=== PATIENT | female | born 1960 | race Caucasian/White ===

== ENCOUNTER 2016-06-24 09:55 | Emergency (ER) | payer MEDICAID ==
[2016-06-24 10:05] VITALS: RESP 18
--- NOTE | 2016-06-24 10:20 | CPEKG ---
Heart Rate: 64 RR Interval: 938 P-R Interval: 180 QRSD Interval: 92 QT Interval: 460 QTC Interval: 475 P Kingsley: 74 QRS Kingsley: 73 T Wave Kingsley: 87 EKG Severity - NORMAL ECG - EKG Impression: SINUS RHYTHM Electronically Signed By: Patt White 24-Jun-2016 14:54:58
--- NOTE | 2016-06-24 10:26 | EDPHY ---
H & P Time Seen by Provider: 06/24/16 10:23 HPI/ROS: CHIEF COMPLAINT: Congestion, cough HISTORY OF PRESENT ILLNESS: This patient is a 55 year old woman, with a history of COPD on chronic supplemental oxygen and diabetes, presenting with a 1.5 week history of sinus congestion and mild cough. It is associated with increased difficulty breathing. Breathing has improved today after increasing her oxygen to 4L. Denies fever. She is not on a steroid secondary to her diabetes. She does not use nebulizers at home. Takes a daily disc inhaler (believes it is Advair). REVIEW OF SYSTEMS: Constitutional: No fever, no chills Eyes: No visual changes ENT: Congestion. No sore throat Respiratory: cough, shortness of breath Cardiac: No chest pain Gastrointestinal: No nausea, no vomiting, no abdominal pain Genitourinary: No hematuria, no dysuria Musculoskeletal: No leg pain or swelling Skin: No rash Neurological: No headache, no numbness, no weakness Psychiatric: No depression Past Medical/Surgical History: COPD, diabetes Social History: Smokes cigarettes Smoking Status: Current every day smoker Physical Exam: General Appearance: Alert, pleasant Eyes: Pupils equal and round, no conjunctival pallor or injection ENT, Mouth: Mucous membranes moist Neck: Normal inspection Respiratory: Few expiratory wheezes Cardiovascular: Regular rate and rhythm Gastrointestinal: Abdomen is soft and non- tender Neurological: A&O, nonfocal, normal gait Skin: Warm and dry, no rash Extremities: Nontender, no pedal edema Psychiatric: Mood and affect normal Constitutional: Initial Vital Signs Temperature (C) 37 C 06/24/16 10:03 Heart Rate 70 06/24/16 10:03 Respiratory Rate 18 06/24/16 10:03 Blood Pressure 132/73 H 06/24/16 10:03 O2 Sat (%) 84 L 06/24/16 10:03 O2 Delivery Mode Nasal Cannula O2 (L/minute) 4 Allergies/Adverse Reactions: bupropion HCl [From Wellbutrin] Allergy (Severe, Verified 06/24/16 10:00) PANIC ATTACKS Home Medications: Medication Instructions Recorded Atenolol [Tenormin 25 mg (*)] 25 mg PO DAILY 05/02/09 Escitalopram Oxalate [Lexapro] 20 mg PO DAILY 05/02/09 Hydrochlorothiazide [HCTZ (*)] 12.5 mg PO DAILY 05/02/09 Levothyroxine [Synthroid 100 mcg 100 mcg PO DAILY06 05/02/09 (*)] Simvastatin [Zocor] 20 mg PO DAILY@19 05/02/09 clonazePAM [klonoPIN (*)] 1.5 mg PO DAILY 05/02/09 metFORMIN HCL [Glucophage 500 mg 1,000 mg PO BIDMEAL 05/02/09 (*)] Cyanocobalamin [Vitamin B12 (*)] 100 mcg PO DAILY 05/02/15 ESOMEPRAZOLE MAG TRIHYDRATE 40 mg PO DAILY PRN 05/02/15 [NEXIUM] Insulin Detemir [Levemir Flextouch] 10 unit SQ HS 05/02/15 Fluticasone/Salmeter 250/50Mcg 1 puffs IH BID #1 disk 05/04/15 [Advair 250/50 (*)] Ipratropium/Albuterol [Combivent 1 inh IH QID #1 mdi 05/04/15 Respimat Inhal Streator] Combivent Respimat Inhal Streator(*) 06/24/16 Labetalol HCl 06/24/16 levOFLOXACIN [levAQUIN (*)] 750 mg PO DAILY #10 tab 06/24/16 Medical Decision Making - Diagnostics EKG Interpretation: EKG interpreted by me reveals normal sinus rhythm, rate 64, no ST or T segment changes. Imaging: Study: PA and Lateral Chest X-ray Indication: Cough, dyspnea Results: I viewed the images myself on the PACS system. The radiologist interpretation is: Possible left lower lobe infiltrate. ED Course/Re-evaluation: Duo nebulizer administered. CXR ordered. Patient feels better after the DuoNeb and 3 L oxygen by nasal cannula. Declined steroids. Chest x-ray results discussed with the patient. She declines admission. She feels that her breathing is much better and that she will be fine at home. CXR shows possible left lower lobe infiltrate. Prescribed Levaquin for treatment. Differential Diagnosis: Differential diagnosis includes though it is not limited to pneumonia, pneumothorax, pulmonary embolism, aortic dissection, pericarditis, acute coronary syndrome. - Data Points Laboratory Results: Laboratory Results 06/24/16 10:25 06/24/16 10:25 Medications Given: Discontinued Medications Albuterol/Ipratropium (Duoneb) 3 ml IH EDNOW ONE Stop: 06/24/16 10:46 Last Admin: 06/24/16 10:55 Dose: 3 ml Departure - Departure Disposition: Home, Routine, Self-Care Clinical Impression: Chronic obstructive pulmonary disease with acute exacerbation, Pneumonia Condition: Good Instructions: COPD (Chronic Obstructive Pulmonary Disease) (ED), Pneumonia (ED) Additional Instructions: Take the Levaquin as prescribed. Follow up with Dr. Hollis this week. Referrals: Vanessa Hollis MD [Primary Care Provider] - As per Instructions Prescriptions: levOFLOXACIN [levAQUIN (*)] 750 mg PO DAILY #10 tab Report Scribed for: Patt White Report Scribed by: Marcia Crowe Date of Report: 06/24/16 Time of Report: 10:25 Physician Review and Approval Statement: 06/24/16 10:43 Portions of this note were transcribed by a medical supervisor. I personally performed a history, physical exam, medical decision making, and confirmed accuracy of information the transcribed note.
[2016-06-24 10:36] LABS: % IMMATURE GRANULYOCYTES 1.2 % (0.0-1.1); ABSOLUTE IMMATURE GRANULOCYTES 0.08 10^3/uL (0.00-0.10); ADD DIFF? NO; ADD MORPH? NO; ADD SCAN? NO; ATYPICAL LYMPHOCYTE FLAG 20 (0-99); FRAGMENT RBC FLAG 0 (0-99); HEMATOCRIT 35.8 % (38.0-47.0); HEMOGLOBIN 12.9 g/dL (12.6-16.3); LEFT SHIFT FLG 0 (0-99); LIPEMIA HEMOLYSIS FLAG 90 (0-99); MEAN CELL HEMOGLOBIN 34.9 pg (27.9-34.1); MEAN CELL VOLUME 96.8 fL (81.5-99.8); MEAN PLATELET VOLUME 9.4 fL (8.7-11.7); PLATELET CLUMPS FLAG 0 (0-99); PLATELET COUNT 192 10^3/uL (150-400); RED CELL DISTRIBUTION WIDTH 12.6 % (11.5-15.2)
[2016-06-24] MEDS ORDERED: IPRATROPIUM/ALBUTEROL 3 ML DEYVIAL IH ONE (10:45)
[2016-06-24] MEDS ORDERED: IPRATROPIUM/ALBUTEROL 3 ML DEYVIAL ONE (10:45)
[2016-06-24 11:06] LABS: ANION GAP 13 mEq/L (8-16); CALCIUM 9.7 mg/dL (8.5-10.4); CARBON DIOXIDE 24 mEq/l (22-31); CHLORIDE 89 mEq/L (97-110); GLOMERULAR FILTRATION RATE 57; GLUCOSE 142 mg/dL (70-100); POTASSIUM 4.6 mEq/L (3.5-5.2); SODIUM 126 mEq/L (134-144)
--- NOTE | 2016-06-24 11:38 | DX ---
Chest, PA Upright and Lateral Views June 24, 2016 at 10:44 a.m. Clinical History: 55-year-old female with COPD on supplemental oxygen who has been experiencing a cou gh, shortness of breath, and an increased need for oxygen. Comparison Study: Chest, dated May 02, 2015. Findings: Oxygen tubing and telemetry monitoring lead lines are present. There are surgical clips in the right upper quadrant of the abdomen. The cardiac silhouette is borderline-enlarged, with a C:T ra luis of approximately 50%. There is moderate central perihilar bronchial wall thickening. There is jerry e bronchovascular crowding in the left retrocardiac region, which may reflect some subsegmental atele ctasis versus an early infiltrate. There is no pleural effusion, peripheral interstitial edema, or pn eumothorax. The trachea is midline. The osseous structures are age-appropriate, with some midthoracic degenerative change. Impression: 1. Perihilar bronchitis. 2. Subsegmental atelectasis versus an early infiltrate in the posteromedial left lower lobe. 3. Borderline-cardiomegaly.
[2016-06-24 12:05] VITALS: BP 151/73; PULSE 60; O2SAT 91
[2016-06-24 12:35] VITALS: TEMP 98.8
== END 2016-06-24 12:35 | disposition home or self-care (01) ==
DX: J44.1 Chronic obstructive pulmonary disease with (acute) exacerbation (principal); J18.9 Pneumonia, unspecified organism; E11.9 Type 2 diabetes mellitus without complications; F17.210 Nicotine dependence, cigarettes, uncomplicated; Z79.4 Long term (current) use of insulin